=== PATIENT | female | born 1960 | race Two or more races ===

== ENCOUNTER → 2019-09-22 08:00 | Outpatient (CLI) | payer OTHER ==
[~2019-09-22 08:00] MED LIST: PRILOSEC20 MG
== END | disposition home or self-care (01) ==
LOC: EKG 08:00
DX: R53.83 Other fatigue (principal); R53.1 Weakness; Z13.6 Encounter for screening for cardiovascular disorders

== ENCOUNTER 2019-09-22 08:39 | Outpatient (CLI) | payer OTHER | END 2019-09-22 08:56 | disposition home or self-care (01) | LOC: MAMO-SONO 08:39 | DX: Z12.31 Encounter for screening mammogram for malignant neoplasm of breast (principal); Z87.898 Personal history of other specified conditions; R53.83 Other fatigue; R53.1 Weakness; Z13.6 Encounter for screening for cardiovascular disorders; Z12.39 Encounter for other screening for malignant neoplasm of breast; M72.2 Plantar fascial fibromatosis; G57.60 Lesion of plantar nerve, unspecified lower limb ==

== ENCOUNTER 2019-10-11 08:37 | Outpatient (CLI) | payer OTHER ==
[~2019-10-11] VITALS: Ht 167.6 cm; Wt 100.2 kg
[2019-10-11] MEDS ORDERED: LIPO-FLAVONOID1 EACH PO (10:36)
== END 2019-10-11 11:08 | disposition home or self-care (01) ==
LOC: OFIC 805 08:37
PROVIDERS: ATTEND Otolaryngology
DX: H93.12 Tinnitus, left ear (principal); H91.8X2 Other specified hearing loss, left ear; R42 Dizziness and giddiness

== ENCOUNTER 2019-10-12 07:08 | Outpatient (CLI) | payer OTHER ==
[~2019-10-12 07:08] MED LIST changes: +LIPO-FLAVONOID1 EACH PO
== END 2019-10-12 07:43 | disposition home or self-care (01) ==
LOC: MAMO-SONO 07:08
PROVIDERS: ATTEND General Practice
DX: Z12.31 Encounter for screening mammogram for malignant neoplasm of breast (principal); R92.8 Other abnormal and inconclusive findings on diagnostic imaging of breast; M54.5 Low back pain; M54.6 Pain in thoracic spine; M54.2 Cervicalgia

== ENCOUNTER 2019-11-03 13:51 | Outpatient (CLI) | payer OTHER | END 2019-11-03 13:57 | disposition home or self-care (01) | LOC: LAB 13:51 | PROVIDERS: ATTEND General Practice | DX: J11.1 Influenza due to unidentified influenza virus with other respiratory manifestations (principal); R05 Cough; Z11.59 Encounter for screening for other viral diseases; Z20.828 Contact with and (suspected) exposure to other viral communicable diseases ==

== ENCOUNTER 2019-11-19 08:21 | Outpatient (CLI) | payer OTHER | END 2019-11-19 09:15 | disposition home or self-care (01) | LOC: SONOGRAMA 08:21 | PROVIDERS: ATTEND General Practice | DX: R22.9 Localized swelling, mass and lump, unspecified (principal) ==

== ENCOUNTER 2019-12-31 07:21 | Emergency (ER) | payer OTHER ==
[~2019-12-31] VITALS: Ht 167.6 cm; Wt 102.1 kg
[2019-12-31] MEDS ORDERED: NEURONTIN800 MG (07:39)
[2019-12-31] MEDS ORDERED: TESSALON PERLE100 M1 PO (09:51)
[2019-12-31] MEDS ORDERED: KETO10TA2 PO (09:51)
[2019-12-31] MEDS ORDERED: ZANAFLEX4 M1 PO (09:51)
[2019-12-31] MEDS ORDERED: MEDROLPACK PO (09:51)
[2019-12-31] MEDS ORDERED: AMBIEN5 MG PO (10:02)
[2020-01-19] MEDS ORDERED: NABUMETONE750 MG PO (10:24)
[2020-01-19] MEDS ORDERED: CYCLOBENZAPRINE10 MG PO (10:25)
== END 2019-12-31 10:25 | disposition home or self-care (01) ==
LOC: ER 07:21
DX: M54.89 Other dorsalgia (principal); M25.562 Pain in left knee; R05 Cough; Z03.818 Encounter for observation for suspected exposure to other biological agents ruled out

== ENCOUNTER → 2020-03-08 | Outpatient (CLI) | payer OTHER ==
[~2020-03-08] MED LIST changes: +AMBIEN5 MG PO; +CYCLOBENZAPRINE10 MG PO; +GABAPENTIN800 MG PO; +KETO10TA2 PO; +MEDROLPACK PO; +NABUMETONE750 MG PO; +NEURONTIN800 MG; +TESSALON PERLE100 M1 PO; +TRAMADOL HCL50 MG PO; +ZANAFLEX4 M1 PO
== END | disposition home or self-care (01) ==
LOC: RAD 10:15 → MRI 10:15
PROVIDERS: ATTEND Physical Medicine & Rehabilitation
DX: G31.89 Other specified degenerative diseases of nervous system (principal); M54.5 Low back pain
CPT/HCPCS: 72148

== ENCOUNTER 2020-03-13 09:47 | Outpatient (CLI) | payer OTHER | END 2020-03-13 09:56 | disposition home or self-care (01) | LOC: RAD 09:47 | PROVIDERS: ATTEND Physical Medicine & Rehabilitation | DX: M47.894 Other spondylosis, thoracic region (principal); M54.2 Cervicalgia; M54.6 Pain in thoracic spine; M17.0 Bilateral primary osteoarthritis of knee ==

== ENCOUNTER 2020-04-21 10:39 | Outpatient (CLI) | payer OTHER | END 2020-04-21 10:53 | disposition HB | LOC: RAD 10:39 | DX: G44.029 Chronic cluster headache, not intractable (principal) ==

== ENCOUNTER 2020-06-23 09:35 | Outpatient (CLI) | payer OTHER | END 2020-06-23 09:48 | disposition HB | LOC: RAD 09:35 | DX: J45.40 Moderate persistent asthma, uncomplicated (principal); Z72.0 Tobacco use ==

== ENCOUNTER 2020-10-23 08:08 | Outpatient (CLI) | payer OTHER | END 2020-10-23 08:29 | disposition home or self-care (01) | LOC: MAMO-SONO 08:08 | PROVIDERS: ATTEND Internal Medicine Cardiovascular Disease | DX: N63.11 Unspecified lump in the right breast, upper outer quadrant (principal) ==

== ENCOUNTER → 2020-10-25 07:03 | Outpatient (CLI) | payer OTHER | END | disposition home or self-care (01) | LOC: LAB 07:03 | PROVIDERS: ATTEND Internal Medicine Cardiovascular Disease | DX: I10 Essential (primary) hypertension (principal); E11.9 Type 2 diabetes mellitus without complications; E03.9 Hypothyroidism, unspecified; M10.9 Gout, unspecified; E55.9 Vitamin D deficiency, unspecified ==

== ENCOUNTER → 2020-10-26 08:19 | Outpatient (CLI) | payer OTHER | END | disposition home or self-care (01) | LOC: LAB 08:19 | PROVIDERS: ATTEND Internal Medicine Cardiovascular Disease | DX: Z12.11 Encounter for screening for malignant neoplasm of colon (principal); I10 Essential (primary) hypertension; E11.9 Type 2 diabetes mellitus without complications; E03.9 Hypothyroidism, unspecified; E78.2 Mixed hyperlipidemia; M10.9 Gout, unspecified; E55.9 Vitamin D deficiency, unspecified ==

== ENCOUNTER 2021-01-01 14:10 | Outpatient (CLI) | payer OTHER | END 2021-01-01 14:15 | disposition home or self-care (01) | LOC: NUCLEAR 14:10 | PROVIDERS: ATTEND Internal Medicine Cardiovascular Disease | DX: M81.0 Age-related osteoporosis without current pathological fracture (principal); E55.9 Vitamin D deficiency, unspecified ==

== ENCOUNTER 2021-04-06 06:47 | Emergency (ER) | payer OTHER ==
[~2021-04-06] VITALS: Ht 167.6 cm; Wt 101.6 kg
[2021-04-07] MEDS ORDERED: TESSALON PERLE100 M1 PO (00:58)
[2021-04-07] MEDS ORDERED: ORPHENADRINE C100 MG PO (00:58)
[2021-04-07] MEDS ORDERED: ZITHROMAX500 MG PO (00:58)
[2021-04-07] MEDS ORDERED: IPRAT-ALBUT 0.5-3 ML IH (00:58)
[2021-04-07] MEDS ORDERED: XOPENEX0.63 MG/3 IH (00:58)
[2021-04-07] MEDS ORDERED: MEDROLPACK PO (00:58)
[2021-04-07] MEDS ORDERED: TUSSI PRES-B L480 ML PO (00:58)
== END 2021-04-07 07:53 | disposition home or self-care (01) ==
LOC: ER 06:47
DX: J45.901 Unspecified asthma with (acute) exacerbation (principal); Z79.84 Long term (current) use of oral hypoglycemic drugs; Z20.822 Contact with and (suspected) exposure to COVID-19; M54.50 Low back pain, unspecified

== ENCOUNTER 2021-04-18 07:05 | Outpatient (CLI) | payer OTHER ==
[~2021-04-18 07:05] MED LIST changes: +IPRAT-ALBUT 0.5-3 ML IH; +ORPHENADRINE C100 MG PO; +TUSSI PRES-B L480 ML PO; +XOPENEX0.63 MG/3 IH; +ZITHROMAX500 MG PO
== END 2021-04-18 07:15 | disposition home or self-care (01) ==
LOC: TOM 07:05
PROVIDERS: ATTEND Internal Medicine Cardiovascular Disease
DX: G93.89 Other specified disorders of brain (principal)

== ENCOUNTER 2021-08-13 09:36 | Emergency (ER) | payer OTHER ==
[~2021-08-13] VITALS: Ht 167.6 cm; Wt 99.3 kg
[2021-08-13] MEDS ORDERED: NORFLEX100MG PO (13:04)
[2021-08-13] MEDS ORDERED: KETO10TA2 PO (13:04)
== END 2021-08-13 13:19 | disposition home or self-care (01) ==
LOC: ER 09:36
DX: Z88.9 Allergy status to unspecified drugs, medicaments and biological substances (principal); E08.9 Diabetes mellitus due to underlying condition without complications

== ENCOUNTER 2021-08-27 06:55 | Outpatient (CLI) | payer OTHER ==
[~2021-08-27 06:55] MED LIST changes: +NORFLEX100MG PO
== END 2021-08-27 07:11 | disposition home or self-care (01) ==
LOC: LAB 06:55
PROVIDERS: ATTEND Internal Medicine Cardiovascular Disease
DX: M12.9 Arthropathy, unspecified (principal); I10 Essential (primary) hypertension; E11.9 Type 2 diabetes mellitus without complications; E03.9 Hypothyroidism, unspecified; E78.2 Mixed hyperlipidemia; Z12.11 Encounter for screening for malignant neoplasm of colon; E55.9 Vitamin D deficiency, unspecified

== ENCOUNTER 2021-09-07 08:13 | Outpatient (CLI) | payer OTHER | END 2021-09-07 08:28 | disposition home or self-care (01) | LOC: MRI 08:13 | PROVIDERS: ATTEND Internal Medicine Cardiovascular Disease | DX: M48.48XA Fatigue fracture of vertebra, sacral and sacrococcygeal region, initial encounter for fracture (principal) | CPT/HCPCS: 72148 ==

== ENCOUNTER 2021-11-21 06:46 | Outpatient (CLI) | payer OTHER ==
[~2021-11-21 06:46] MED LIST changes: +PREGABALIN75 MG PO
== END 2021-11-21 06:47 | disposition home or self-care (01) ==
LOC: LAB 06:46
PROVIDERS: ATTEND Physical Medicine & Rehabilitation
DX: M79.7 Fibromyalgia (principal)

== ENCOUNTER 2021-11-21 07:24 | Outpatient (CLI) | payer OTHER | END 2021-11-21 07:33 | disposition home or self-care (01) | LOC: MAMO-SONO 07:24 | PROVIDERS: ATTEND Internal Medicine Cardiovascular Disease | DX: N63.11 Unspecified lump in the right breast, upper outer quadrant (principal) ==

== ENCOUNTER → 2021-12-07 | Outpatient (CLI) | payer OTHER ==
[~2021-12-07] MED LIST changes: +ETODOLAC400 MG PO
== END | disposition home or self-care (01) ==
LOC: SONOGRAMA 07:12
PROVIDERS: ATTEND Physical Medicine & Rehabilitation
DX: R10.12 Left upper quadrant pain (principal)

== ENCOUNTER 2021-12-14 07:14 | Outpatient (CLI) | payer OTHER | END 2021-12-14 07:24 | disposition home or self-care (01) | LOC: RAD 07:14 | PROVIDERS: ATTEND Internal Medicine Cardiovascular Disease | DX: J44.9 Chronic obstructive pulmonary disease, unspecified (principal) ==

== ENCOUNTER 2022-01-11 06:57 | Outpatient (CLI) | payer OTHER | END 2022-01-11 07:08 | disposition home or self-care (01) | LOC: LAB 06:57 | PROVIDERS: ATTEND Internal Medicine Cardiovascular Disease | DX: E03.9 Hypothyroidism, unspecified (principal); I10 Essential (primary) hypertension; E11.9 Type 2 diabetes mellitus without complications; E78.2 Mixed hyperlipidemia ==

== ENCOUNTER → 2022-01-30 09:02 | Outpatient (CLI) | payer OTHER | END | disposition home or self-care (01) | LOC: MRI 09:02 | PROVIDERS: ATTEND Internal Medicine Cardiovascular Disease | DX: M12.9 Arthropathy, unspecified (principal); M19.90 Unspecified osteoarthritis, unspecified site | CPT/HCPCS: 73718 ==

== ENCOUNTER 2022-05-13 08:21 | Outpatient (CLI) | payer OTHER | END 2022-05-13 08:29 | disposition home or self-care (01) | LOC: RAD 08:21 | PROVIDERS: ATTEND Orthopaedic Surgery | DX: R07.9 Chest pain, unspecified (principal) ==

== ENCOUNTER 2022-05-13 08:39 | Outpatient (CLI) | payer OTHER | END 2022-05-13 11:04 | disposition home or self-care (01) | LOC: LAB 08:39 | PROVIDERS: ATTEND Orthopaedic Surgery | DX: I10 Essential (primary) hypertension (principal); D68.9 Coagulation defect, unspecified; E78.2 Mixed hyperlipidemia; N39.0 Urinary tract infection, site not specified ==

== ENCOUNTER 2022-06-20 07:38 | Outpatient (CLI) | payer OTHER ==
[~2022-06-20 07:38] MED LIST changes: +DICLOFENAC POTA50 MG PO
== END 2022-06-20 07:39 | disposition home or self-care (01) ==
LOC: LAB 07:38
PROVIDERS: ATTEND Internal Medicine Cardiovascular Disease
DX: I10 Essential (primary) hypertension (principal); E11.9 Type 2 diabetes mellitus without complications; E03.9 Hypothyroidism, unspecified; E78.2 Mixed hyperlipidemia; Z12.11 Encounter for screening for malignant neoplasm of colon; E55.9 Vitamin D deficiency, unspecified

== ENCOUNTER 2022-06-24 07:27 | Outpatient (CLI) | payer OTHER | END 2022-06-24 07:39 | disposition home or self-care (01) | LOC: MRI 07:27 | PROVIDERS: ATTEND Orthopaedic Surgery | DX: M25.512 Pain in left shoulder (principal) | CPT/HCPCS: 73218 ==

== ENCOUNTER → 2022-06-25 07:27 | Outpatient (CLI) | payer OTHER | END | disposition home or self-care (01) | LOC: LAB 07:27 | PROVIDERS: ATTEND Internal Medicine Cardiovascular Disease | DX: I10 Essential (primary) hypertension (principal); E11.9 Type 2 diabetes mellitus without complications; E03.9 Hypothyroidism, unspecified; E78.2 Mixed hyperlipidemia; Z12.11 Encounter for screening for malignant neoplasm of colon; E55.9 Vitamin D deficiency, unspecified ==

== ENCOUNTER 2022-08-26 06:35 | Outpatient (CLI) | payer OTHER | END 2022-08-26 06:51 | disposition home or self-care (01) | LOC: LAB 06:35 | DX: E78.5 Hyperlipidemia, unspecified (principal); I10 Essential (primary) hypertension; H53.9 Unspecified visual disturbance; D68.8 Other specified coagulation defects ==

== ENCOUNTER 2023-01-22 07:24 | Outpatient (CLI) | payer OTHER | END 2023-01-22 07:33 | disposition home or self-care (01) | LOC: RAD 07:24 | PROVIDERS: ATTEND Orthopaedic Surgery | DX: M25.561 Pain in right knee (principal); M25.562 Pain in left knee ==

== ENCOUNTER 2023-03-13 13:24 | Emergency (ER) | payer OTHER ==
[~2023-03-13] VITALS: Ht 167.6 cm; Wt 102.1 kg
[2023-03-13 15:18] LABS: HEMATOCRIT 43.9 % (36.0-45.00); MEAN CORPUSCULAR HEMOGLOBIN 28.4 pg (27.00-32.0); MEAN CORPUSCULAR HGB CONC 34.2 g/dl (32.0-36.0); PLATELET COUNT 204 K/uL (150-450); RED BLOOD COUNT 5.29 M/uL (4.00-6.00)
[2023-03-13 15:47] LABS: CALCIUM 9.9 mg/dL (8.5-10.1); CREATININE SERUM 0.8 mg/dL (0.55-1.02); GFR 71.99; POTASSIUM 3.95 mEq/L (3.5-5.1)
[2023-03-13] MEDS ORDERED: DICLOFENAC SODI50 MG PO (17:38)
[2023-03-13] MEDS ORDERED: NORFLEX100MG PO (17:38)
== END 2023-03-13 17:52 | disposition home or self-care (01) ==
LOC: ER 13:24
PROVIDERS: Nurse Practitioner Family
DX: R42 Dizziness and giddiness (principal); E11.9 Type 2 diabetes mellitus without complications; J45.909 Unspecified asthma, uncomplicated; Z88.6 Allergy status to analgesic agent; M50.322 Other cervical disc degeneration at C5-C6 level
CPT/HCPCS: 36415; 70450; 71046; 72040; 93005; 96365; 96372; 99284; J1885; J2360; J2405; J3490

== ENCOUNTER → 2023-04-01 06:00 | Outpatient (CLI) | payer OTHER ==
[~2023-04-01 06:00] MED LIST changes: +DICLOFENAC SODI50 MG PO
[2023-04-01 09:18] LABS: HEMATOCRIT 43.3 % (36.0-45.00); HEMOGLOBIN 14.2 g/dL (12.0-15.00); MEAN CORPUSCULAR HEMOGLOBIN 27.6 pg (27.00-32.0); MEAN CORPUSCULAR HGB CONC 32.9 g/dl (32.0-36.0); PLATELET COUNT 199 K/uL (150-450); RED BLOOD COUNT 5.16 M/uL (4.00-6.00); RED CELL DISTRIBUTION WIDTH 14.9 % (11.5-14.5)
[2023-04-01 09:33] LABS: PH,URINE 6.5 (5.0-8.0); URINE APPEARANCE Clear; URINE BILIRRUBIN Negative (NEGATIVE); URINE BLOOD Negative; URINE COLOR Yellow; URINE GLUCOSE Negative (NEGATIVE); URINE LEUKOCYTE Trace; URINE NITRATE Negative; URINE PROTEIN Negative (NEGATIVE); URINE UROBILINOGEN 0.2 E.U./dl
[2023-04-01 09:37] LABS: INR 1.01; PARTIAL THROMBOPLASTIN TIME 28.6 SECONDS (22.0-34.0); PROTHROMBIN TIME 10.6 SECONDS (9.0-11.5)
[2023-04-01 09:38] LABS: URINE BACTERIA 1394.3 uL (0.0-1933); URINE EPITHELIAL CELLS 35.5 uL (0.0-38.8); URINE RBC 7.6 uL (0.0-20.8); URINE WBC 9.7 uL (0.0-23.2)
[2023-04-01 09:54] LABS: ALBUMIN 3.9 gm/dL (3.4-5.0); BILIRUBIN TOTAL 0.52 mg/dL (0.3-1.2); CALCIUM 9.7 mg/dL (8.5-10.1); CREATININE SERUM 0.74 mg/dL (0.55-1.02); GFR 78.76; GLOBULINA 3.8 G/DL (2.4-3.5); POTASSIUM 4.11 mEq/L (3.5-5.1); TOTAL PROTEIN 7.7 gm/dL (6.4-8.2)
== END | disposition home or self-care (01) ==
LOC: LAB 06:00 → EDSTATUS 04-08 07:15 → SURG 04-08 07:15
PROVIDERS: ATTEND Orthopaedic Surgery
DX: M17.11 Unilateral primary osteoarthritis, right knee (principal); M85.661 Other cyst of bone, right lower leg

== ENCOUNTER 2023-08-06 06:46 | Outpatient (CLI) | payer OTHER ==
[2023-08-06 08:25] LABS: URINE APPEARANCE Clear; URINE BILIRRUBIN Negative (NEGATIVE); URINE BLOOD Negative; URINE COLOR Yellow; URINE GLUCOSE Negative (NEGATIVE); URINE LEUKOCYTE Negative; URINE NITRATE Negative; URINE PROTEIN Negative (NEGATIVE); URINE UROBILINOGEN 0.2 E.U./dl
[2023-08-06 08:29] LABS: HEMATOCRIT 43.2 % (36.0-45.00); HEMOGLOBIN 14.4 g/dL (12.0-15.00); MEAN CELL VOLUME 82.4 fL (80.00-100.00); MEAN CORPUSCULAR HEMOGLOBIN 27.5 pg (27.00-32.0); MEAN CORPUSCULAR HGB CONC 33.3 g/dl (32.0-36.0); PLATELET COUNT 197 K/uL (150-450); RED BLOOD COUNT 5.24 M/uL (4.00-6.00); RED CELL DISTRIBUTION WIDTH 15.4 % (11.5-14.5)
[2023-08-06 08:29] LABS: URINE BACTERIA 157.4 uL (0.0-1933); URINE EPITHELIAL CELLS 5.8 uL (0.0-38.8)
[2023-08-06 09:20] LABS: ALBUMIN 3.9 gm/dL (3.4-5.0); BILIRUBIN TOTAL 0.28 mg/dL (0.3-1.2); CALCIUM 9.8 mg/dL (8.5-10.1); CHOL HDL RATIO 3.9 (0-5.0); CREATININE SERUM 0.75 mg/dL (0.55-1.02); GFR 77.55; GLOBULINA 3.8 G/DL (2.4-3.5); POTASSIUM 4.77 mEq/L (3.5-5.1); T4 TOTAL 9.03 UG/DL (4.8-13.9); TOTAL PROTEIN 7.7 gm/dL (6.4-8.2); TSH 1.62 uIU/mL (0.358-3.74)
[2023-08-06 09:23] LABS: URINE RBC 1.8 uL (0.0-20.8)
[2023-08-06 13:55] LABS: FECAL LEUKOCYTES NEGATIVE (NEGATIVE)
== END 2023-08-06 06:47 | disposition home or self-care (01) ==
LOC: LAB 06:46
PROVIDERS: ATTEND Internal Medicine Cardiovascular Disease
DX: I10 Essential (primary) hypertension (principal); E11.9 Type 2 diabetes mellitus without complications; E03.9 Hypothyroidism, unspecified; E78.2 Mixed hyperlipidemia; K52.9 Noninfective gastroenteritis and colitis, unspecified; B82.9 Intestinal parasitism, unspecified; A04.72 Enterocolitis due to Clostridium difficile, not specified as recurrent

== ENCOUNTER 2023-08-06 08:03 | Outpatient (CLI) | payer OTHER | END 2023-08-06 08:09 | disposition home or self-care (01) | LOC: RAD 08:03 | PROVIDERS: ATTEND Internal Medicine Cardiovascular Disease | DX: R10.9 Unspecified abdominal pain (principal); J44.9 Chronic obstructive pulmonary disease, unspecified ==

== ENCOUNTER 2023-08-08 07:32 | Outpatient (CLI) | payer OTHER | END 2023-08-08 07:39 | disposition home or self-care (01) | LOC: TOM 07:32 | PROVIDERS: ATTEND Internal Medicine Pulmonary Disease | DX: J45.40 Moderate persistent asthma, uncomplicated (principal); Z72.0 Tobacco use; R04.2 Hemoptysis ==

== ENCOUNTER 2023-11-12 06:59 | Outpatient (CLI) | payer OTHER ==
[2023-11-12 07:35] LABS: HEMATOCRIT 41.9 % (36.0-45.00); MEAN CORPUSCULAR HEMOGLOBIN 27.8 pg (27.00-32.0); MEAN CORPUSCULAR HGB CONC 33.5 g/dl (32.0-36.0); PLATELET COUNT 191 K/uL (150-450); RED BLOOD COUNT 5.04 M/uL (4.00-6.00); RED CELL DISTRIBUTION WIDTH 15.3 % (11.5-14.5)
[2023-11-12 07:52] LABS: URINE APPEARANCE Clear; URINE BILIRRUBIN Negative (NEGATIVE); URINE BLOOD Negative; URINE COLOR Yellow; URINE GLUCOSE Negative (NEGATIVE); URINE LEUKOCYTE Trace; URINE NITRATE Negative; URINE PROTEIN Negative (NEGATIVE); URINE UROBILINOGEN 0.2 E.U./dl
[2023-11-12 07:55] LABS: URINE BACTERIA 1542.2 uL (0.0-1933); URINE EPITHELIAL CELLS 64.8 uL (0.0-38.8); URINE RBC 4.7 uL (0.0-20.8); URINE WBC 21.7 uL (0.0-23.2)
[2023-11-12 08:03] LABS: CALCIUM 9.1 mg/dL (8.5-10.1); CHOL HDL RATIO 4.1 (0-5.0); CREATININE SERUM 0.77 mg/dL (0.55-1.02); GFR 75.23; POTASSIUM 4.06 mEq/L (3.5-5.1); T4 TOTAL 9.16 UG/DL (4.8-13.9); TSH 2.46 uIU/mL (0.358-3.74)
== END 2023-11-12 07:03 | disposition home or self-care (01) ==
LOC: LAB 06:59
PROVIDERS: ATTEND Internal Medicine Cardiovascular Disease
DX: E03.9 Hypothyroidism, unspecified (principal); I10 Essential (primary) hypertension; E11.9 Type 2 diabetes mellitus without complications; E78.2 Mixed hyperlipidemia

== ENCOUNTER 2023-11-12 07:38 | Outpatient (CLI) | payer OTHER | END 2023-11-12 07:40 | disposition home or self-care (01) | LOC: MAMO-SONO 07:38 | PROVIDERS: ATTEND Internal Medicine Cardiovascular Disease | DX: N60.11 Diffuse cystic mastopathy of right breast (principal); N60.12 Diffuse cystic mastopathy of left breast; Z12.31 Encounter for screening mammogram for malignant neoplasm of breast ==

== ENCOUNTER 2023-11-18 11:58 | Emergency (ER) | payer OTHER ==
[~2023-11-18] VITALS: Ht 167.6 cm; Wt 122.9 kg
[2023-11-18] MEDS ORDERED: GABAPENTIN800 M1 PO (13:01)
[2023-11-18] MEDS ORDERED: FAMOTIDINE/PF 20 MG/2 ML VIAL IV ONE (14:30)
[2023-11-18] MEDS ORDERED: ONDANSETRON HCL 2 MG/ML VIAL IV ONE (14:30)
[2023-11-18] MEDS ORDERED: 0.9 % SODIUM CHLORIDE 500 ML IV ONE (14:30)
[2023-11-18] MEDS ORDERED: ONDANSETRON HCL 2 MG/ML VIAL ONE (14:47)
[2023-11-18] MEDS ORDERED: FAMOtidine 200mg/20ml VIAL ONE (14:48)
[2023-11-18 15:47] LABS: HEMATOCRIT 45.4 % (36.0-45.00); HEMOGLOBIN 15.3 g/dL (12.0-15.00); MEAN CELL VOLUME 83.3 fL (80.00-100.00); MEAN CORPUSCULAR HGB CONC 33.6 g/dl (32.0-36.0); PLATELET COUNT 242 K/uL (150-450); RED BLOOD COUNT 5.45 M/uL (4.00-6.00); RED CELL DISTRIBUTION WIDTH 15.1 % (11.5-14.5)
[2023-11-18 16:11] LABS: INR 1.04; PARTIAL THROMBOPLASTIN TIME 31.3 SECONDS (22.0-34.0); PROTHROMBIN TIME 10.9 SECONDS (9.0-11.5)
[2023-11-18 16:18] LABS: ALBUMIN 4.4 gm/dL (3.4-5.0); BILIRUBIN TOTAL 0.52 mg/dL (0.3-1.2); CALCIUM 9.7 mg/dL (8.5-10.1); CREATININE SERUM 0.75 mg/dL (0.55-1.02); GFR 77.55; GLOBULINA 4.3 G/DL (2.4-3.5); POTASSIUM 3.39 mEq/L (3.5-5.1); TOTAL PROTEIN 8.7 gm/dL (6.4-8.2)
[2023-11-18 16:36] LABS: PH,URINE 5.5 (5.0-8.0); URINE APPEARANCE Clear; URINE BILIRRUBIN Negative (NEGATIVE); URINE BLOOD Negative; URINE COLOR Yellow; URINE GLUCOSE Negative (NEGATIVE); URINE LEUKOCYTE Negative; URINE NITRATE Negative; URINE PROTEIN Negative (NEGATIVE); URINE UROBILINOGEN 0.2 E.U./dl
[2023-11-18 16:41] LABS: URINE BACTERIA 362.8 uL (0.0-1933); URINE EPITHELIAL CELLS 8.4 uL (0.0-38.8); URINE RBC 4.1 uL (0.0-20.8); URINE WBC 8.3 uL (0.0-23.2)
[2023-11-18] MEDS ORDERED: INTESTINEX680 M1 PO (18:24)
[2023-11-18] MEDS ORDERED: ONDANSETRON HCL4 MG PO (18:24)
[2023-11-18] MEDS ORDERED: PEPCID AC20 MG PO (18:24)
== END 2023-11-18 18:43 ==
LOC: ER 11:58
PROVIDERS: Nurse Practitioner Family
DX: K52.89 Other specified noninfective gastroenteritis and colitis (principal); E11.9 Type 2 diabetes mellitus without complications; Z79.84 Long term (current) use of oral hypoglycemic drugs; Z88.8 Allergy status to other drugs, medicaments and biological substances; Z87.09 Personal history of other diseases of the respiratory system; Z20.822 Contact with and (suspected) exposure to COVID-19
CPT/HCPCS: 36415; 74176; 96365; 99283; J2405; J3490

== ENCOUNTER 2024-01-30 07:20 | Outpatient (CLI) | payer OTHER ==
[~2024-01-30 07:20] MED LIST changes: +GABAPENTIN800 M1 PO; +INTESTINEX680 M1 PO; +ONDANSETRON HCL4 MG PO; +PEPCID AC20 MG PO
== END 2024-01-30 07:34 | disposition home or self-care (01) ==
LOC: SONOGRAMA 07:20
PROVIDERS: ATTEND Internal Medicine Cardiovascular Disease
DX: R10.9 Unspecified abdominal pain (principal)

== ENCOUNTER 2024-10-08 07:06 | Outpatient (CLI) | payer OTHER ==
[2024-10-08 07:56] LABS: BASO % 0.6 % (0.1-1.2); EOS # 0.51 (0.04-0.54); EOS % 9.4 % (0.7-7.0); HEMATOCRIT 42.1 % (34.1-44.9); HEMOGLOBIN 14.1 g/dL (11.2-15.7); LYMPH # 1.65 (1.18-3.74); LYMPH % 30.4 % (19.3-53.1); MEAN CORPUSCULAR HEMOGLOBIN 27.1 pg (25.6-32.2); MONO # 0.43 (0.24-0.82); MONO % 7.9 % (4.7-12.5); NEUT % 51.5 % (34.0-71.1); PLATELET COUNT 195 K/uL (163-369); RED CELL DISTRIBUTION WIDTH 14.7 % (11.6-14.4)
[2024-10-08 08:06] LABS: URINE APPEARANCE Clear; URINE BILIRRUBIN Negative (NEGATIVE); URINE BLOOD Negative; URINE COLOR Yellow; URINE GLUCOSE Negative (NEGATIVE); URINE KETONE Negative (NEGATIVE); URINE LEUKOCYTE Moderate; URINE NITRATE Negative; URINE PROTEIN Negative (NEGATIVE); URINE UROBILINOGEN 0.2 E.U./dl
[2024-10-08 08:10] LABS: URINE BACTERIA 1741.7 uL (0.0-1933); URINE EPITHELIAL CELLS 50.6 uL (0.0-38.8); URINE RBC 5.4 uL (0.0-20.8); URINE WBC 46.2 uL (0.0-23.2)
[2024-10-08 08:47] LABS: URINE CAST 0.29 uL (0.0-1.40)
[2024-10-08 09:56] LABS: ALBUMIN 3.7 gm/dL (3.4-5.0); BILIRUBIN TOTAL 0.42 mg/dL (0.3-1.2); CALCIUM 9.7 mg/dL (8.5-10.1); CHOL HDL RATIO 3.6 (0-5.0); CREATININE SERUM 0.74 mg/dL (0.55-1.02); GFR 78.52; GLOBULINA 3.7 G/DL (2.4-3.5); POTASSIUM 4.08 mEq/L (3.5-5.1); T4 TOTAL 8.45 UG/DL (4.8-13.9); TOTAL PROTEIN 7.4 gm/dL (6.4-8.2); TSH 2.9 uIU/mL (0.358-3.74)
[2024-10-08 10:48] LABS: T3 TOTAL 1.02 ng/ml (0.846-2.02); VITAMIN D3 25 HYDROXY 36.81 ng/ml (30-120)
== END 2024-10-08 07:20 | disposition home or self-care (01) ==
LOC: LAB 07:06
PROVIDERS: ATTEND Internal Medicine Cardiovascular Disease
DX: E11.9 Type 2 diabetes mellitus without complications (principal); I10 Essential (primary) hypertension; E03.9 Hypothyroidism, unspecified; E78.2 Mixed hyperlipidemia; D64.0 Hereditary sideroblastic anemia; Z12.11 Encounter for screening for malignant neoplasm of colon; E55.9 Vitamin D deficiency, unspecified; M81.0 Age-related osteoporosis without current pathological fracture

== ENCOUNTER 2024-10-08 08:40 | Outpatient (CLI) | payer OTHER | END 2024-10-08 08:42 | disposition home or self-care (01) | LOC: RAD 08:40 | PROVIDERS: ATTEND Internal Medicine Cardiovascular Disease | DX: M12.9 Arthropathy, unspecified (principal); M46.40 Discitis, unspecified, site unspecified ==